=== PATIENT | female | born 2000 | race Two or more races ===

== ENCOUNTER 2024-10-19 15:15 | Outpatient (CLI) | payer OTHER | END 2024-10-19 15:17 | disposition home or self-care (01) | LOC: PRENATAL 15:15 | PROVIDERS: ATTEND Obstetrics & Gynecology Maternal & Fetal Medicine | DX: O36.80X0 Pregnancy with inconclusive fetal viability, not applicable or unspecified (principal); Z36.82 Encounter for antenatal screening for nuchal translucency; Z3A.14 14 weeks gestation of pregnancy ==

== ENCOUNTER → 2024-12-04 10:56 | Outpatient (CLI) | payer OTHER | END | disposition home or self-care (01) | LOC: PRENATAL 10:56 | PROVIDERS: ATTEND Obstetrics & Gynecology Maternal & Fetal Medicine | DX: O44.00 Complete placenta previa NOS or without hemorrhage, unspecified trimester (principal); Z3A.21 21 weeks gestation of pregnancy ==

== ENCOUNTER 2025-02-26 13:40 | Outpatient (CLI) | payer OTHER | END 2025-02-26 13:41 | disposition home or self-care (01) | LOC: PRENATAL 13:40 | PROVIDERS: ATTEND Obstetrics & Gynecology Maternal & Fetal Medicine | DX: O26.849 Uterine size-date discrepancy, unspecified trimester (principal); O36.8130 Decreased fetal movements, third trimester, not applicable or unspecified; O99.019 Anemia complicating pregnancy, unspecified trimester; Z3A.32 32 weeks gestation of pregnancy ==

== ENCOUNTER 2025-04-14 11:39 | Inpatient (IN) | payer OTHER ==
[~2025-04-14] VITALS: Ht 160 cm; Wt 3.6 kg
[2025-04-14] VITALS (7 sets, daily range): BP systolic 119–143; BP diastolic 55–90
[2025-04-14] MEDS ORDERED: AMPICILLIN SODIUM 2,000 MG VIAL ONE (11:47)
[2025-04-14] MEDS ORDERED: AMPICILLIN SODIUM 2,000 MG VIAL IV NR (12:15)
[2025-04-14] MEDS ORDERED: RINGERS SOLUTION,LACTATED 1,000 ML IV SCH (12:15)
[2025-04-14] MEDS ORDERED: PRENATAL CAPLE1 EAC1 PO (12:15)
[2025-04-14] MEDS ORDERED: ZOLOFT25 MG PO (12:16)
[2025-04-14] MEDS ORDERED: FOLIC ACID1 MG PO (12:16)
[2025-04-14] MEDS ORDERED: PEPCID AC20 MG PO (12:16)
[2025-04-14 12:26] LABS: BASO % 0.1 % (0.1-1.2); EOS # 0.04 (0.04-0.54); EOS % 0.3 % (0.7-7.0); LYMPH # 1.18 (1.18-3.74); LYMPH % 10.3 % (19.3-53.1); MEAN PLATELET VOLUME 9.80 fl (9.4-12.4); MONO # 1.19 (0.24-0.82); MONO % 10.4 % (4.7-12.5); NEUT # 8.97 (1.56-6.13); NEUT % 78.0 % (34.0-71.1); RED CELL DISTRIBUTION WIDTH 16.4 % (11.6-14.4)
[2025-04-14] MEDS ORDERED: OXYTOCIN 500 ML IV SCH (12:45)
[2025-04-14 12:52] LABS: INR < 0.93
[2025-04-14 12:52] LABS: URINE APPEARANCE Cloudy; URINE BILIRRUBIN Small (NEGATIVE); URINE BLOOD Large; URINE COLOR Dark Yellow; URINE KETONE Trace (NEGATIVE); URINE LEUKOCYTE Moderate; URINE NITRATE Negative; URINE PROTEIN 30 (NEGATIVE); URINE UROBILINOGEN 1.0 E.U./dl
[2025-04-14 12:56] LABS: URINE BACTERIA 2619.4 uL (0.0-1933); URINE EPITHELIAL CELLS 54.7 uL (0.0-38.8); URINE RBC 36.9 uL (0.0-20.8); URINE WBC 521.5 uL (0.0-23.2)
[2025-04-14 13:00] LABS: ALT/SGPT 15.0 U/L (12-78); AST/SGOT 16.0 U/L (15-37); BILIRUBIN TOTAL 0.47 mg/dL (0.3-1.2); BUN CREA RATIO 16.0 (7.0-25.0); CREATININE SERUM 0.51 mg/dL (0.55-1.02); GFR 148.15; GLOBULINA 3.5 G/DL (2.4-3.5); GLUCOSE FASTING 84.0 mg/dL (65-100); OSMOLALITY SERUM 279.0 MOSM/KG (275-295)
[2025-04-14] MEDS ORDERED: AMPICILLIN SODIUM 1,000 MG VIAL IV SCH ×2 (13:00→17:00)
[2025-04-14 13:41] LABS: URINE CAST 0.14 uL (0.0-1.40); URINE CRYSTALS MODERATE /HPF; URINE GLUCOSE 100 MG/DL (NEGATIVE)
[2025-04-14] MEDS ORDERED: MORPHINE SULFATE 4 MG/ML CARTRIDGE IV ONE (14:15)
[2025-04-14] MEDS ORDERED: CHLORHEXIDINE GLUCONATE 120 ML BOTTLE TOP ONE ×2 (16:13→21:30)
[2025-04-14] MEDS ORDERED: ERYTHROMYCIN BASE OPHT 1GM EACH TUBE OP ONE ×2 (16:13→21:30)
[2025-04-14] MEDS ORDERED: OXYTOCIN 20 UNITS/1000ML RL PIGGYBAG IV ONE (16:13)
[2025-04-14] MEDS ORDERED: LIDOCAINE HCL 1% 10ML VIAL ONE (16:13)
[2025-04-14] MEDS ORDERED: OXYTOCIN 1,000 ML IV SCH (17:15)
[2025-04-14] MEDS ORDERED: ACETAMINOPHEN 500 MG GEL..CAP PO PRN (17:15)
[2025-04-14] MEDS ORDERED: LIDOCAINE HCL 1% 10ML VIAL IJ ONE (21:30)
[2025-04-14 21:52] LABS: BASO % 0.1 % (0.1-1.2); EOS # 0.00 (0.04-0.54); EOS % 0.0 % (0.7-7.0); LYMPH # 0.91 (1.18-3.74); LYMPH % 4.7 % (19.3-53.1); MEAN PLATELET VOLUME 9.80 fl (9.4-12.4); MONO # 1.36 (0.24-0.82); MONO % 7.0 % (4.7-12.5); NEUT # 17.04 (1.56-6.13); NEUT % 87.6 % (34.0-71.1); RED CELL DISTRIBUTION WIDTH 16.5 % (11.6-14.4)
[2025-04-15] VITALS: BP 117/77
[2025-04-15 08:23] VITALS: BP 124/77
[2025-04-15] MEDS ORDERED: PNV,CALCIUM 72/IRON/FOLIC ACID 1 TAB TABLET PO SCH (09:00)
[2025-04-15 16:09] VITALS: BP 110/69
[2025-04-15] MEDS ORDERED: MEASLES,MUMPS,RUBELLA VACC/PF 1 VIAL VIAL SUBCUTANEO NR (17:45)
[2025-04-16 00:10] VITALS: BP 118/74
[2025-04-16 08:08] VITALS: BP 118/82
[2025-04-16] MEDS ORDERED: MEASLES,MUMPS,RUBELLA VACC/PF 1 VIAL VIAL SUBCUTANEO ONE (11:30)
== END 2025-04-16 18:26 | disposition home or self-care (01) | DRG 807 ==
LOC: LDR 11:39 → OB/GYN 11:39
PROVIDERS: Obstetrics & Gynecology; ADMIT Student in an Organized Health Care Education/Training Program; ATTEND Student in an Organized Health Care Education/Training Program
PROC: 10E0XZZ Delivery of Products of Conception, External Approach (ICD-10-PCS; principal; 2025-04-14)
PROC: 0HQ9XZZ Repair Perineum Skin, External Approach (ICD-10-PCS; 2025-04-14)
PROC: 0UQG7ZZ Repair Vagina, Via Natural or Artificial Opening (ICD-10-PCS; 2025-04-14)
PROC: 4A1HXCZ Monitoring of Products of Conception, Cardiac Rate, External Approach (ICD-10-PCS; 2025-04-14)
DX: O70.1 Second degree perineal laceration during delivery (principal); Z37.0 Single live birth; O99.824 Streptococcus B carrier state complicating childbirth; Z3A.38 38 weeks gestation of pregnancy